=== PATIENT | male | born 1955 | race Caucasian/White ===

== ENCOUNTER 2022-05-06 10:49 | Emergency (ER) | payer MEDICARE ==
[~2022-05-06] VITALS: Ht 182.9 cm; Wt 104.3 kg
[2022-05-06 11:30] VITALS: BP_SYST 150; BP_SYST 155; BP_SYST 157; BP_DIAS 67; BP_DIAS 75
[2022-05-06 11:38] LABS: BASOPHIL % 0.3 % (0.0-0.2); EOSINOPHIL % 0.7 % (0.0-5.0); LYMPHOCYTES # 0.76 10^3/uL1 (1.0-4.8); LYMPHOCYTES % 12.5 % (24.0-44.0); MEAN CORP HGB 30.7 pg (26-34); MONOCYTES # 0.5 10^3/uL (0.3-0.8); MONOCYTES % 7.9 % (5.0-12.0); NEUTROPHIL # 4.8 10^3/uL (1.8-7.7); NEUTROPHILS % 78.6 % (41.0-85.0); PLATELET COUNT 208 10^3/uL (150-400); RED CELL DISTRIBUTION WIDTH 12.7 % (11.5-14.5)
[2022-05-06 11:43] LABS: BILIRUBIN,URINE NEGATIVE (NEGATIVE); UROBILINOGEN,URINE 0.2 E.U./dL (0.2)
[2022-05-06 12:23] LABS: CARBON DIOXIDE 27.3 mmol/L (20.0-32)
--- NOTE | 2022-05-06 12:29 | DIREP ---
PROCEDURE:CT ABDOMEN/PELVIS W/O CONTRAST COMPARISON:None. INDICATIONS:left flank pain TECHNIQUE:Axial images were created through the abdomen and pelvis without intravenous contrast material. No oral contrast was administered. Sagittal and coronal reconstructions were performed from source images. FINDINGS: LOWER CHEST:Unremarkable. LIVER: There is a 0.9 cm low-density lesion in segment 4 a of the liver, too small for further characterization. BILIARY: Gallbladder is dilated, contains dense bile, sludge or stones. No intra or extrahepatic biliary dilation. PANCREAS: Unremarkable. SPLEEN: Normal, nonenlarged. KIDNEYS: No renal mass. There is a 0.5 cm stone in the left ureteropelvic junction. There is mild left hydronephrosis. There a couple additional nonobstructing stones in the left kidney measuring up to 0.2 cm. There may also be parapelvic cysts in the left renal hilum. Mild symmetric perinephric stranding is nonspecific. ADRENALS: Normal. AORTA/VASCULAR: Normal. No aneurysm. RETROPERITONEUM: No adenopathy or mass. BOWEL/MESENTERY: No evidence of obstruction. Appendectomy. Colonic diverticulosis, predominantly involving the sigmoid colon. No imaging evidence of diverticulitis. ABDOMINAL WALL: Normal. No mass or hernia. URINARY BLADDER: Inherently limited evaluation of the wall; unremarkable for level of distension. PELVIS: Prostatic tissue present. No adenopathy. BONES: Severe intervertebral disc height loss in the lower lumbar spine. Bilateral L5 pars defects. Posterior disc osteophyte complex L4-L5. No bony lesion or fracture. OTHER: No free air or fluid. CONCLUSION: 1. Left ureteropelvic junction stone with mild left hydronephrosis. 2. Dilated gallbladder may be secondary to fasting. There appears to be dense bile, sludge or stones. Ultrasound could be considered for additional evaluation of the gallbladder, if indicated. Dictated by: Holly Pierre MD on 05/06/2022 at 12:23 PM
--- NOTE | 2022-05-06 13:01 | ER.PDOC ---
General Chief Complaint: Requesting Medical Care Stated Complaint: MALE Time seen by MD: 11:34 Source: patient Exam Limitations: no limitations History of Present Illness Initial Comments pt is here with left flank pain that started 3 days ago. IT is shap in nature radiating from flank to groin. No alleviatig or exacerbating factors. Severity is moderate Timing/Duration: 1 week Severity/Quality: moderate Radiation: flank, groin Associated Symptoms: denies symptoms Exacerbated by: nothing Relieved By: nothing Past Medical History Medical History: no pertinent history Reviewed Nursing Reviewed: Vital Signs, Abn. Noted, Nursing Assessment Constitutional: no symptoms reported EENTM: no symptoms reported Respiratory: no symptoms reported Gastrointestinal: no symptoms reported Genitourinary: flank pain Musculoskeletal: no symptoms reported Skin: no symptoms reported Endocrine: no symptoms reported All Other Systems: Reviewed and Negative Physical Exam General Appearance: No Apparent Distress, WD/WN HEENT: PERRL/EOMI Neck: Full Range of Motion, Supple Respiratory: chest non-tender, lungs clear, normal breath sounds, no respiratory distress Gastrointestinal: Normal Bowel Sounds, Non Tender, Soft Extremities: Normal Range of Motion, Non-Tender Neurologic/Psychiatric: shaft repairer II-XII NML as Tested, No Motor/Sensory Deficits, Alert, Normal Mood/Affect, Oriented x 3 Skin: Normal Color, Warm/Dry Results/Orders Results/Orders Orders - OSVALDO GILBERT MD Cbc With Auto Diff (05/06/22 11:00) Comprehensive Metabolic Panel (05/06/22 11:00) Urinalysis (05/06/22 11:00) Chlam/Gc/Trich (05/06/22 11:00) Ct Abd/Pelvis Wo Iv Contrast (05/06/22 11:59) 0.9 % Sodium Chloride (Ns 1000ml) (05/06/22 13:30) Laboratory Tests Test 05/06/22 11:30 White Blood Count 6.1 10^3/uL (4.5-11.0) Red Blood Count 4.99 10^6/uL (4.50-5.90) Hemoglobin 15.3 g/dL (13.9-16.3) Hematocrit 46.9 % (37.0-53.0) Mean Corpuscular Volume 94.0 fL (78-100) Mean Corpuscular Hemoglobin 30.7 pg (26-34) Mean Corpuscular Hemoglobin Concent 32.6 g/dL (33-36.5) L Red Cell Distribution Width 12.7 % (11.5-14.5) Platelet Count 208 10^3/uL (150-400) Mean Platelet Volume 12.0 fL (7.8-11.0) H Neutrophils (%) (Auto) 78.6 % (41.0-85.0) Lymphocytes (%) (Auto) 12.5 % (24.0-44.0) L Monocytes (%) (Auto) 7.9 % (5.0-12.0) Neutrophils # (Auto) 4.8 10^3/uL (1.8-7.7) Lymphocytes # (Auto) 0.76 10^3/uL1 (1.0-4.8) L Monocytes # (Auto) 0.5 10^3/uL (0.3-0.8) Absolute Immature Granulocyte (auto 0 10^3 u/L (0-2) Absolute Eosinophils (auto) 0.0 10^3/uL (0.0-0.2) Immature Granulocytes % 0.00 % (0.00-0.50) Eosinophils % 0.7 % (0.0-5.0) Basophils % 0.3 % (0.0-0.2) H Basophils # 0.0 10^3/uL (0.0-0.1) Urine Collection Type RANDOM Urine Color YELLOW Urine Appearance CLOUDY Urine Bilirubin NEGATIVE (NEGATIVE) Urine Ketones NEGATIVE (NEGATIVE) Urine Specific [employer] >=1.030 (1.005-1.030) Urine pH 5.5 (4.5-8.0) Urine Protein 1+ (NEGATIVE) H Urine Urobilinogen 0.2 E.U./dL (0.2) Urine Nitrate NEGATIVE (NEGATIVE) Urine Leukocyte Esterase NEGATIVE (NEGATIVE) Urine Glucose (Auto)(UA) NEGATIVE (NEGATIVE) Urine Blood 2+ (NEGATIVE) H Sodium Level 140 mmol/L (132-145) Potassium Level 4.1 mmol/L (3.6-5.2) Chloride Level 103.0 mmol/L (96-109) Carbon Dioxide Level 27.3 mmol/L (20.0-32) Anion Gap 13.8 Blood Urea Nitrogen 26 mg/dL (7-18) H Creatinine 1.62 mg/dL (0.59-1.40) H Estimated GFR () 51.8 (>/=60) Est GFR (CKD-EPI)(Non-Afr Egyptian) 42.8 (>/=60) BUN/Creatinine Ratio 16.0 Glucose Level 121 mg/dL (70-110) H Calcium Level 9.3 mg/dL (8.4-10.5) Total Bilirubin 0.7 mg/dL (0.2-1.0) Aspartate Amino Transferase (AST) 21 U/L (0-35) Alanine Aminotransferase (ALT) 47 U/L (12-78) Alkaline Phosphatase 82 U/L (50-136) Total Protein 8.0 g/dL (6.4-8.2) Albumin 4.7 g/dL (3.4-5.0) Globulin 3.3 Albumin/Globulin Ratio 1.424 Progress Progress I tried to call Dr Joy but he is on vacation in [place]. I called [facility] and spoke to Dr. Hutton, Urologist and he recommends hydrating and then follow-up outpatient. ER DEPART Departure Time of Disposition: 13:29 Disposition: 01 HOME / SELF CARE / HOMELESS Impression: Primary Impression: Renal and ureteric calculus Condition: Improved Referrals: PCP,UNKNOWN (PCP) PRIMARY CARE PROVIDER JAYLEEN JOY MD call and make an appointment Duration or Time Spent with Pa: OSVALDO DING MD May 06, 2022 13:01
[2022-05-06] MEDS: NS 1000ML 1,000 ML IV SCH (14:11)
== END 2022-05-06 15:20 | disposition home or self-care (01) ==
LOC: ER 10:49
DX: N20.1 Calculus of ureter (principal); R11.2 Nausea with vomiting, unspecified
CPT/HCPCS: 74176; 80053; 81001; 85025; 87086; 87491; 96360; 99284